=== PATIENT | male | born 1935 | race Caucasian/White ===

== ENCOUNTER 2018-05-21 14:07 | Emergency (ER) | payer MEDICARE ==
[~2018-05-21] VITALS: Ht 172.7 cm; Wt 99.8 kg
[~2018-05-21 14:07] MED LIST: ALL300T; AML5T; ATOR10TA; FLUN0.02; LISI40TA; METO25TA4; NAPR1TAB24; SITA100T7; TER5T
[2018-05-21 15:47] LABS: INR 0.94 (0.9-1.15); Partial Thromboplastin Time 27.3 sec (23.78-33.04); Prothrombin Time 10.1 sec (9.27-12.13)
[2018-05-21 15:53] LABS: Albumin 3.1 g/dL (3.4-5.0); Calcium 9.1 mg/dL (8.5-10.1); Potassium 3.7 mmol/L (3.5-5.1)
[2018-05-21 15:55] LABS: BUN/Creatinine Ratio 25.8; Bilirubin, Total 0.4 mg/dL (0.2-1.0); Total Protein 7.1 g/dL (6.4-8.2)
[2018-05-21 16:17] LABS: Basophils # (auto) 0.1 uL; Basophils % (auto) 0.7 % (0.0-2.0); Eosinophils # (auto) 0.4 uL; Eosinophils % (auto) 4.1 % (0.0-7.0); Hematocrit 49.2 % (41.0-53.0); Hemoglobin 16.1 g/dL (13.5-17.5); Lymphocytes # (auto) 2.2 uL; Lymphocytes % (auto) 23.8 % (10.0-50.0); Mean Corpuscular Hemoglobin 31.9 pg (28.0-32.0); Mean Corpuscular Hgb Conc. 32.7 g/dL (32.0-36.0); Mean Corpuscular Volume 97.7 fL (80.0-100.0); Monocytes # (auto) 1.1 uL; Monocytes % (auto) 11.7 % (0.0-12.0); Neutrophils # (auto) 5.5 uL; Neutrophils % (auto) 59.7 % (37.0-80.0); Platelet Count (auto) 161 10^3/uL (140-450); Red Blood Cells 5.04 10^6/uL (4.5-5.90); Red Cell Distribution Width 15.2 % (11.8-14.3); White Blood Cell 9.2 10^3/uL (4.4-10.8)
[2018-05-21 20:29] VITALS: BP 200/79
== END 2018-05-21 20:38 | disposition home or self-care (01) ==
LOC: ER 14:11
DX: R04.0 Epistaxis (principal); I10 Essential (primary) hypertension; E11.9 Type 2 diabetes mellitus without complications; E78.5 Hyperlipidemia, unspecified; M10.9 Gout, unspecified; Z88.8 Allergy status to other drugs, medicaments and biological substances; Z79.899 Other long term (current) drug therapy
CPT/HCPCS: 30901; 36415; 80053; 85025; 85610; 85730